=== PATIENT | male | born 1980 | race Caucasian/White ===

== ENCOUNTER 2020-01-26 07:00 | Day surgery (SDC) | payer BC ==
[2020-01-22 10:01] LABS: BASOPHILS # (AUTO) 0.1 X10'3 (0-0.2); BASOPHILS % (AUTO) 1.3 % (0-1); EOSINOPHILS # (AUTO) 0.2 X10'3 (0-0.9); EOSINOPHILS % (AUTO) 4.3 % (0-6); LYMPHOCYTES # (AUTO) 2.4 X10'3 (1.1-4.8); LYMPHOCYTES % (AUTO) 45.5 % (21-51); MEAN CORPUSCULAR HEMOGLOBIN 29.7 PG (27.0-31.0); MEAN CORPUSCULAR VOLUME 87.1 FL (78-98); MEAN PLATELET VOLUME 7.8 FL (7.4-10.4); MONOCYTES # (AUTO) 0.7 X10'3 (0-0.9); MONOCYTES % (AUTO) 13.6 % (2-12); NEUTROPHILS # (AUTO) 1.9 X10'3 (1.8-7.7); NEUTROPHILS % (AUTO) 35.3 % (42-75); PRE OP PLATELET COUNT 250 X10'3 (140-440); RED BLOOD COUNT 5.05 X10'6 (4.70-6.10); RED CELL DISTRIBUTION WIDTH 13.7 % (11.5-14.5)
[2020-01-22 10:16] LABS: ALBUMIN/GLOBULIN RATIO 1.1 (1.1-1.5); ALKALINE PHOSPHATASE 69 IU/L (46-116); BLOOD UREA NITROGEN 11 MG/DL (7-18); BUN/CREATININE RATIO 10.9 (5.4-32.0); CALCIUM 8.7 MG/DL (8.5-10.1); CHLORIDE 105 MMOL/L (99-107); CREATININE 1.01 MG/DL (0.60-1.10); PRE OP ALT 41 U/L (30-65); PRE OP ANION GAP 7 (8-16); PRE OP AST 30 U/L (10-37); PRE OP BILIRUB, TOTAL 0.7 MG/DL (0.0-1.0); PRE OP GLUCOSE 94 MG/DL (70-104); PRE OP POTASSIUM 4.3 MMOL/L (3.4-5.1); PRE OP SODIUM 139 MMOL/L (135-145); TOTAL CARBON DIOXIDE 27.4 MMOL/L (24-32); TOTAL PROTEIN 7.6 G/DL (6.4-8.2); eGFR 83 ML/MIN
[~2020-01-26] VITALS: Ht 180.3 cm; Wt 88.5 kg
[2020-01-26] VITALS (11 sets, daily range): BP systolic 132–144; BP diastolic 68–88
[~2020-01-26 07:00] MED LIST: NO HOME MEDS; cefazolin/dext.iso 2gm/50ml 50 ML IV ONE; famotidine 20mg tablet PO ONE; ringers solution, lacted 1,000 ML IV SCH
[2020-01-26] MEDS ORDERED: LIDOcaine 1% 30ml preserv. free vial ONE (09:39)
[2020-01-26] MEDS ORDERED: BUPIVAcaine/PF 2.5 mg/ml (0.25%) 30ml vial ONE (09:40)
[2020-01-26] MEDS ORDERED: midazolam 2 mg/2 ml injection ONE (09:51)
[2020-01-26] MEDS ORDERED: propofol inj 20 ML IV ONE (09:51)
[2020-01-26] MEDS ORDERED: rocuronium 10mg/ml inj IV ONE (09:51)
[2020-01-26] MEDS ORDERED: fentaNYL/PF 50MCG/1 ML 2ML syringe ONE (09:51)
[2020-01-26] MEDS ORDERED: ringers solution, lacted 1,000 ML IV SCH (09:56)
[2020-01-26] MEDS ORDERED: sevoflurane 250ml liquid IH ONE (09:58)
[2020-01-26] MEDS ORDERED: meperidine/PF 25mg/ml syringe IV PRN ×3 (10:00)
[2020-01-26] MEDS ORDERED: ondansetron/PF 4mg/2ml inj IV PRN (10:00)
[2020-01-26] MEDS ORDERED: morphine 4 MG/ML inj SYRINge IV PRN (10:00)
[2020-01-26] MEDS ORDERED: proCHLORperazine 10 MG/2 ml inj IV PRN (10:00)
[2020-01-26] MEDS ORDERED: morphine 2 MG/ML inj. syringe IV PRN (10:00)
[2020-01-26] MEDS ORDERED: neostigmine methylsulfate 1 MG/ML 10ml vial ONE (11:20)
[2020-01-26] MEDS ORDERED: glycopyrrolate 0.2mg/ml inj ONE (11:27)
--- NOTE | 2020-01-26 11:35 | NUR ---
Received from OR via BED , accompanied by Anesthesiologist DR PHILLIPS and report given by Anesthesiolgist. PATIENT WAKING UP, DENIES PAIN, V/S WNL, NEUROVASCULAR CHECKS INTACT, 20G PIV LUE, SCD ON, BANDAIDS TO LAP SIGHTS OF ABDOMEN CDI.
[2020-01-26] MEDS ORDERED: HYDROcodone/acetaminophen 5mg/325mg tablet PO PRN ×2 (11:45)
--- NOTE | 2020-01-26 13:05 | NUR ---
PATIENT A&OX4, DENIES PAIN, V/S WNL, NEUROVASCULAR CHECKS INTACT, 20G PIV LUE D/C, SCD OFF, BANDAIDS TO LAP SIGHTS OF ABDOMEN CDI. PATIENT HAS VOIDED 200+CC URINE. I HAVE REVIEWED D/C INSTRUCTIONS WITH PATIENT AND FAMILY HAVE VERBALIZED UNDERSTANDING.PATIENT WAS D/C HOME WITH ALL BELONGINGS AND FAMILY GAVE TRANSPORT HOME.
== END 2020-01-26 13:05 | disposition home or self-care (01) ==
LOC: PAS 07:00
PROVIDERS: ATTEND Surgery
DX: K40.20 Bilateral inguinal hernia, without obstruction or gangrene, not specified as recurrent (principal); Z98.890 Other specified postprocedural states
CPT/HCPCS: 36415; 49650; 80053; 82948; 85025; C1781; J2001; J2250; J2405; J2704; J2710; J3010; J3490; S2900; A4215; A4618; J7120